=== PATIENT | female | born 1945 | race Caucasian/White ===

== ENCOUNTER 2017-04-08 22:03 | Inpatient (IN) | payer OTHER ==
[~2017-04-08] VITALS: Ht 152.4 cm; Wt 37.3 kg
[2017-04-08] MEDS ORDERED: TRAZODONE HCL50 MG PO (22:19)
[2017-04-08] MEDS ORDERED: LEVOTHYROXINE75 MCG PO (22:20)
[2017-04-08] MEDS ORDERED: LOPRESSOR25 MG PO (22:20)
[2017-04-08] MEDS ORDERED: ZOLOFT25 MG PO (22:21)
[2017-04-08] MEDS ORDERED: FERGON324 MG PO (22:21)
[2017-04-08] MEDS ORDERED: ALLERGY RELIE15.8 ML BOTH NARES (22:22)
[2017-04-08] MEDS ORDERED: MUCINEX600 MG PO (22:23)
[2017-04-08] MEDS ORDERED: NEURONTIN600 MG PO (22:23)
[2017-04-08] MEDS ORDERED: ALPHAGAN P100 DROP/1 BOTH EYES (22:24)
[2017-04-08] MEDS ORDERED: LORAZEPAM1 MG PO (22:24)
[2017-04-08] MEDS ORDERED: ROXICODONE15 MG PO (22:25)
[2017-04-08] MEDS ORDERED: ONE-A-DAY PRO200 MCG PO (22:26)
[2017-04-08] MEDS ORDERED: SYMBICORT60 INHALAT IH (22:26)
[2017-04-08] MEDS ORDERED: PRESERVISION A1 EAC2 PO (22:26)
[2017-04-08] MEDS ORDERED: ANTI-DIARRHEA2 MG PO (22:27)
[2017-04-08] MEDS ORDERED: COLACE100 MG PO (22:28)
[2017-04-08] MEDS ORDERED: ANTACID ULTRA1000 M1 PO (22:29)
[2017-04-08] MEDS ORDERED: PROVENTIL,2.5 MG/3 M IH (22:30)
[2017-04-08 23:19] LABS: BASOPHIL (%) 0.3 % (0-1); EOSINOPHIL (%) 0.2 % (0-5); HEMATOCRIT 33.8 % (36.0-46.0); HEMOGLOBIN 10.8 G/DL (11.9-15.5); IMMATURE GRANULOCYTE (%) 0.4 % (0.0-0.7); LYMPHOCYTE (%) 1.8 % (15-42); LYMPHOCYTE COUNT 0.2 K/uL (1.0-2.8); MCH 27.9 PG (29.0-34.0); MCV 87.3 FL (83-99); MONOCYTE (%) 2.8 % (3-12); MONOCYTE COUNT 0.3 K/uL (0-0.8); NEUTROPHIL (%) 94.5 % (45-76); NEUTROPHIL COUNT 8.4 K/uL (1.8-6.4); PLATELET COUNT 194 K/uL (156-360); RBC DIS.WIDTH-SD 44.2 % (39-53); RED BLOOD COUNT 3.87 M/uL (3.80-5.20); WHITE BLOOD COUNT 8.9 K/uL (4.1-10.2)
[2017-04-08 23:33] LABS: CHLORIDE 103 mEq/L (99-109); POTASSIUM 4.3 mEq/L (3.7-5.4); SODIUM 138 mEq/L (136-147)
[2017-04-08 23:34] LABS: GLUCOSE 152 mg/dL (70-99)
[2017-04-08 23:38] LABS: CREATININE 0.5 mg/dL (0.6-1.3); GFR ESTIMATE (CALCULATED) > 59 mL/min/
[2017-04-08 23:39] LABS: UREA NITROGEN (BUN) 22 mg/dL (9-23)
[2017-04-09 05:48] VITALS: BP 169/71
[2017-04-09 08:00] VITALS: BP 125/69
[2017-04-09 12:10] VITALS: BP 122/67
[2017-04-09 16:02] VITALS: BP 140/68
[2017-04-09 19:30] VITALS: BP 109/58
[2017-04-09 23:57] VITALS: BP 115/53
[2017-04-10 04:10] VITALS: BP 137/65
[2017-04-10 07:31] VITALS: BP 190/82
[2017-04-10 11:21] VITALS: BP 155/78
[2017-04-10 15:31] VITALS: BP 163/73
[2017-04-10 19:47] VITALS: BP 121/60
[2017-04-10 23:52] VITALS: BP 127/55
[2017-04-11 03:29] VITALS: BP 118/70
[2017-04-11 07:20] VITALS: BP 188/103
[2017-04-11 07:33] LABS: FOLIC ACID (FOLATE) 10.5 NG/ML (5.0-22.0)
[2017-04-11 11:42] VITALS: BP 142/65
[2017-04-11 15:32] VITALS: BP 140/71
[2017-04-11 19:21] LABS: C DIFF TOXIN NEGATIVE (NEGATIVE)
[2017-04-12 00:21] VITALS: BP 142/68
[2017-04-12 07:00] VITALS: BP 145/78
[2017-04-12 15:39] VITALS: BP 188/91
[2017-04-12 23:32] VITALS: BP 140/77
[2017-04-13 06:59] LABS: BASOPHIL (%) 0.2 % (0-1); EOSINOPHIL (%) 0 % (0-5); HEMATOCRIT 33.4 % (36.0-46.0); HEMOGLOBIN 10.2 G/DL (11.9-15.5); IMMATURE GRANULOCYTE (%) 1.1 % (0.0-0.7); LYMPHOCYTE (%) 11.5 % (15-42); LYMPHOCYTE COUNT 0.7 K/uL (1.0-2.8); MCH 26.6 PG (29.0-34.0); MCHC 30.5 G/DL (30.0-36.0); MCV 87.2 FL (83-99); MONOCYTE (%) 4.4 % (3-12); MONOCYTE COUNT 0.3 K/uL (0-0.8); NEUTROPHIL (%) 82.8 % (45-76); NEUTROPHIL COUNT 4.7 K/uL (1.8-6.4); RBC DIS.WIDTH-SD 44.3 % (39-53); RED BLOOD COUNT 3.83 M/uL (3.80-5.20); WHITE BLOOD COUNT 5.7 K/uL (4.1-10.2)
[2017-04-13 07:06] LABS: PLATELET COUNT 256 K/uL (156-360)
[2017-04-13 07:08] VITALS: BP 175/88
[2017-04-13 07:10] LABS: ALBUMIN 2.8 G/DL (3.2-4.8); ALKALINE PHOSPHATASE 69 IU/L (3-129); ALT (GPT) 9 IU/L (3-49); AST (GOT) 9 IU/L (2-34); CHLORIDE 98 MEQ/L (99-109); CREATININE 0.3 MG/DL (0.6-1.3); GFR ESTIMATE (CALCULATED) > 59 mL/min/; GLUCOSE 123 mg/dL (70-99); POTASSIUM 4.6 MEQ/L (3.7-5.4); SODIUM 141 MEQ/L (136-147); TOTAL BILIRUBIN 0.2 MG/DL (0.0-1.0); TOTAL PROTEIN 4.6 G/DL (6.4-8.3); UREA NITROGEN (BUN) 21 mg/dL (9-23)
[2017-04-13] MEDS ORDERED: CEFTIN500 MG PO (09:06)
[2017-04-13] MEDS ORDERED: PREDNISONE10 MG PO (09:08)
== END 2017-04-13 11:42 | disposition home or self-care (01) | DRG 194 ==
LOC: EME 22:03 → EDOF 04-09 04:01 → 2EASTP 04-09 04:01 → ENRESERV 04-09 04:02 → 2EASTP 04-09 05:39 → ENPENDDIS 04-13 → 2EASTP 04-13 11:42
PROVIDERS: Emergency Medicine; Internal Medicine
DX: J18.9 Pneumonia, unspecified organism (principal); J44.1 Chronic obstructive pulmonary disease with (acute) exacerbation; E44.0 Moderate protein-calorie malnutrition; Z68.1 Body mass index [BMI] 19.9 or less, adult; F33.9 Major depressive disorder, recurrent, unspecified; J44.0 Chronic obstructive pulmonary disease with (acute) lower respiratory infection; S22.42XA Multiple fractures of ribs, left side, initial encounter for closed fracture; G89.29 Other chronic pain; D63.8 Anemia in other chronic diseases classified elsewhere; W19.XXXA Unspecified fall, initial encounter; E03.9 Hypothyroidism, unspecified; F41.9 Anxiety disorder, unspecified; H54.8 Legal blindness, as defined in USA; I10 Essential (primary) hypertension; R09.02 Hypoxemia; G62.9 Polyneuropathy, unspecified; Z90.710 Acquired absence of both cervix and uterus; Z90.3 Acquired absence of stomach [part of]; Z87.891 Personal history of nicotine dependence; Z87.11 Personal history of peptic ulcer disease; Z99.81 Dependence on supplemental oxygen; Z88.2 Allergy status to sulfonamides; Y92.9 Unspecified place or not applicable
CPT/HCPCS: 71045; 71260; 80048; 80053; 82607; 82728; 82746; 83605; 85025; 87040; 87493; 87502; 93005; 94010; 94640; 94640 76; 94644; 94760; 94799; 99202; 99281; 99285; J0456; J0696; J1100; J1200; J1644; J1956; J2920